=== PATIENT | male | born 1955 | race Native Hawaiian/Other Pacific Islander ===

== ENCOUNTER 2020-06-27 14:41 | Outpatient (CLI) | payer OTHER ==
[2020-06-27 15:10] LABS: PLATELET COUNT 201 K/uL (142-355)
[2020-06-27 15:24] LABS: POTASSIUM 4.4 mmol/L (3.6-5.2)
== END 2020-06-27 20:32 | disposition home or self-care (01) ==
LOC: LAB 14:41
PROVIDERS: ATTEND Nurse Practitioner Family
DX: Z00.00 Encounter for general adult medical examination without abnormal findings (principal); E53.8 Deficiency of other specified B group vitamins; E29.1 Testicular hypofunction; M19.90 Unspecified osteoarthritis, unspecified site; Z79.899 Other long term (current) drug therapy; R53.81 Other malaise; R53.83 Other fatigue; E55.9 Vitamin D deficiency, unspecified
CPT/HCPCS: 80053; 80061; 82306; 82607; 83036; 84439; 84443; 85027